=== PATIENT | female | born 1990 | race Caucasian/White ===

== ENCOUNTER 2017-06-01 14:52 | Emergency (ER) | payer MEDICAID, OTHER ==
[2017-06-01 15:09] VITALS: O2SAT 98; BMI 34.5
--- NOTE | 2017-06-01 15:46 | C.PDOC ---
History Of Present Illness 27 y/o female presents to the ED with complaints of colicky abdominal pain x2-3 days. Pain was initially RUQ, now is left flank. She also reports constipation and flatus, only a small bowel movement. PSHx . Denies fever, nausea, vomiting or any other complaints. LMP 05/14. COLICKY ABD PAIN X 2-3 DAYS. INITIAL ONSET RUQ NOW L FLANK. +CONSTIPATION, ONLY SMALL BM. PSH CSECT. +FLATUS. NO FEVER NV. LMP 05/14 EXAM NEG Time Seen by Provider: 06/01/17 15:16 Chief Complaint (Nursing): Abdominal Pain History Per: Patient History/Exam Limitations: no limitations Onset/Duration Of Symptoms: Days Current Symptoms Are (Timing): Still Present Severity: Moderate Location Of Pain/Discomfort: Other (left flank) Radiation Of Pain To:: None Quality Of Discomfort: "Pain" Associated Symptoms: Constipation. denies: Fever, Chills Exacerbating Factors: None Alleviating Factors: None Recent travel outside of the [place]: No Past Medical History Reviewed: Historical Data, Nursing Documentation, Vital Signs Vital Signs: Last Vital Signs Temp 98.6 F 06/01/17 15:09 Pulse 90 06/01/17 15:09 Resp 20 06/01/17 15:09 BP 104/67 06/01/17 15:09 Pulse Ox 98 06/01/17 17:32 - Medical History PMH: Bipolar Disorder, Bronchitis, Depression Surgical History: Family History: States: Unknown Family Hx - Social History Hx Tobacco Use: No Hx Alcohol Use: No Hx Substance Use: No - Immunization History Hx Tetanus Toxoid Vaccination: No Hx Influenza Vaccination: No Hx Pneumococcal Vaccination: No Review Of Systems Except As Marked, All Systems Reviewed And Found Negative. Constitutional: Negative for: Fever, Chills Gastrointestinal: Positive for: Constipation. Negative for: Nausea, Vomiting Genitourinary: Positive for: Other (left flank pain) Physical Exam - Physical Exam Appears: Non-toxic, No Acute Distress Skin: Warm, Dry, No Rash Head: Atraumatic, Normacephalic Chest: Symmetrical Cardiovascular: Rhythm Regular, No Murmur Respiratory: Normal Breath Sounds, No Rales, No Rhonchi, No Wheezing Gastrointestinal/Abdominal: Normal Exam, Soft, No Tenderness Back: Normal Inspection, No CVA Tenderness Extremity: Normal ROM Extremity: Bilateral: Atraumatic Neurological/Psych: Oriented x3, Normal Speech, Normal Cognition ED Course And Treatment O2 Sat by Pulse Oximetry: 98 (room air) Pulse Ox Interpretation: Normal Progress - Re-Evaluation Re-evaluation Note: 06/01/17 17:31 KUB INDETERM. EXAM UNCH. WILL CT RO OBSTRUCT VS CONSTIPATION 06/01/17 19:00 S/O DR PEDRO [place] CT, LABS, DISPO - Data Reviewed Data Reviewed: Lab, Diagnostic imaging Medical Decision Making Medical Decision Making: Plan: * UA * XR abdomen Disposition Counseled Patient/Family Regarding: Diagnosis - Disposition Disposition Time: 19:00 Condition: STABLE - Clinical Impression Clinical Impression: Abdominal pain - Scribe Statement The provider has reviewed the documentation as recorded by the Derick Morris Provider Attestation: All medical record entries made by the Frankibe were at my direction and personally dictated by me. I have reviewed the chart and agree that the record accurately reflects my personal performance of the history, physical exam, medical decision making, and the department course for this patient. I have also personally directed, reviewed, and agree with the discharge instructions and disposition. Physician Patient Turnover Patient Signed Over To: Reynaldo Kendrick Handoff Comments: ERIK CT, LABS, DISPO
[2017-06-01 17:14] LABS: SQUAMOUS EPITHIAL 2 /hpf (0-5); URINE BILIRUBIN NEGATIVE (NEGATIVE); URINE CLARITY Clear (Clear); URINE COLOR Yellow (YELLOW); URINE GLUCOSE (UA) NORMAL (Normal); URINE LEUKOCYTE ESTERASE NEG Leu/uL (Negative); URINE NITRATE NEGATIVE (NEGATIVE); URINE PROTEIN NEGATIVE (NEGATIVE); URINE UROBILINOGEN NORMAL mg/dL (0.2-1.0)
[2017-06-01 17:16] LABS: URINE BLOOD NEGATIVE (NEGATIVE)
--- NOTE | 2017-06-01 17:28 | RAD ---
HISTORY: RUQ/LUQ PAIN RO CONSTIPATION COMPARISON: No prior. FINDINGS: BOWEL: Normal. No obstruction. No free air. BONES: Normal. OTHER FINDINGS: None. IMPRESSION: No active disease.
[2017-06-01] MEDS ORDERED: Iohexol 240 (50 ml) PO STA (17:30)
[2017-06-01] MEDS ORDERED: Iohexol 240 (50 ml) ONE (18:26)
[2017-06-01 18:41] LABS: BASO # 0.1 K/uL (0.0-0.2); BASO % 0.8 % (0.0-2.0); EOS # 0.1 K/uL (0.0-0.7); EOS % 0.5 % (0.0-4.0); HEMOGLOBIN 11.2 g/dL (11.0-16.0); LYMPH # 3.6 K/uL (1.0-4.3); LYMPH % 29.7 % (20.0-40.0); MEAN CELL VOLUME 76.8 fL (81.0-99.0); MEAN CORPUSCULAR HEMOGLOBIN 23.9 pg (27.0-31.0); MEAN CORPUSCULAR HGB CONC 31.2 g/dL (33.0-37.0); MEAN PLATELET VOLUME 8.4 fL (7.2-11.7); MONO # 0.5 K/uL (0.0-0.8); MONO % 4.3 % (0.0-10.0); NEUT % 64.7 % (50.0-75.0); RBC 4.68 Mil/uL (3.80-5.20); RED CELL DISTRIBUTION WIDTH 16.1 % (11.5-14.5); WHITE BLOOD COUNT 12.3 K/uL (4.8-10.8)
[2017-06-01 18:50] LABS: ALB/GLOB RATIO 1.2 (1.0-2.1); ALT/SGPT 28 U/L (9-52); AST/SGOT 20 U/L (14-36); BLOOD UREA NITROGEN 12 mg/dL (7-17); GFR AFRICAN-AMERICAN > 60; GFR NON-AFRICAN AMERICAN > 60
[2017-06-01 18:51] LABS: CALCIUM 8.8 mg/dl (8.6-10.4); LIPASE 32 U/L (23-300)
--- NOTE | 2017-06-01 20:35 | CT ---
EXAM: CT Abdomen and Pelvis With Intravenous Contrast CLINICAL HISTORY: 27 years old, female; Pain; Abdominal pain; Generalized; Additional info: Abd pain RO constipation vs obstruct TECHNIQUE: Axial computed tomography images of the abdomen and pelvis with intravenous contrast. This CT exam was performed using one or more of the following dose reduction techniques: automated exposure control, adjustment of the mA and/or kV according to patient size, and/or use of iterative reconstruction technique. Coronal and sagittal reformatted images were created and reviewed. CONTRAST: 100 mL of visipaque 320 administered intravenously. EXAM DATE/TIME: 06/01/2017 5:30 PM COMPARISON: There are no prior studies for comparison. FINDINGS: Lower thorax: Heart size is normal. There is minimal atelectasis/scarring at the lung bases. ABDOMEN: Liver: There is fatty infiltration of the liver. Gallbladder and bile ducts: unremarkable Pancreas: unremarkable Spleen: Spleen is unremarkable. There is an accessory spleen in the left upper quadrant. Adrenals: unremarkable Kidneys and ureters: Kidneys are unremarkable There is left upper pole caliectasis. There is no palpable ureterectasis. Stomach and bowel: Stomach is moderately distended with contrast and air. Rotation is normal. Small bowel is partially opacified with oral contrast. There is no obstruction. Terminal ileum is unremarkable. Appendix is unremarkable.Colon is incompletely distended which limits evaluation. There is scattered diverticulosis Appendix: See stomach and bowel PELVIS: Bladder: unremarkable Reproductive: Uterus and adnexal structures are unremarkable. 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 ABDOMEN and PELVIS: Intraperitoneal space: There is no free air or free fluid. Bones/joints: There are no acute osseous abnormalities Soft tissues: There is a small fat containing umbilical hernia. Vasculature: Vascular structures are unremarkable. Lymph nodes: There is no pathologic adenopathy. IMPRESSION: Fatty liver, no acute solid visceral abnormality; no CT findings of bowel obstruction; no appendicitis or diverticulitis; pelvic varices left greater than right Additional findings as described above.
[2017-06-01] MEDS ORDERED: Belladonna-Phenobarbital PO STA (20:45)
[2017-06-01] MEDS ORDERED: Belladonna-Phenobarbital ONE (20:57)
[2017-06-01 20:58] VITALS: BP 100/40; PULSE 70; RESP 16; TEMP 98.3
== END 2017-06-01 20:57 | disposition home or self-care (01) ==
LOC: C.ER 14:52
DX: R10.9 Unspecified abdominal pain (principal)
CPT/HCPCS: 74020; 74177; 80053; 81001; 83690; 85025; 96374; 96375; 99284; J2270; J2405; Q9966